=== PATIENT | male | born 1975 | race Caucasian/White ===

== ENCOUNTER 2017-01-21 13:25 | Emergency (ER) | payer OTHER | END 2017-01-21 15:06 | disposition home or self-care (01) | LOC: CED 13:25 → SED 13:25 → CED 14:14 → SED 15:06 | DX: S51.812A Laceration without foreign body of left forearm, initial encounter (principal); F17.200 Nicotine dependence, unspecified, uncomplicated; W45.8XXA Other foreign body or object entering through skin, initial encounter; Y92.009 Unspecified place in unspecified non-institutional (private) residence as the place of occurrence of the external cause | CPT/HCPCS: 12002; 90471; 90715; 99283 ==